=== PATIENT | female | born 1930 | race Caucasian/White ===

== ENCOUNTER → 2017-07-03 | Outpatient (CLI) | payer OTHER, MEDICARE ==
[~2017-07-03] MED LIST: CALCIUM 500 +1 EACH PO; CALTRATE 6001 TABLE1 PO; CENTRUM SILVER1 EAC3; CENTRUM SILVER1 EAC3 PO; EYE DROPS BOTH EYES; FEOSOL44 MG/ML PO; FERROUS SULFAT325 MG PO; FISH OIL 1,0001 EACH PO; FISH OIL 1,2001 EAC4 PO; HYDROCHLOROTH12.5 M3; HYDROCHLOROTH12.5 M3 PO; LO-DOSE ASPIRIN81 M1; LOW DOSE ASPIRI81 M2 PO; MICROZIDE PO; MIRALAX17 GM PO; PROTONIX40 MG PO; SIMVASTATIN10 MG; SIMVASTATIN10 MG PO; SYSTANE 0.300 DROP/1 BOTH EYES; Zocor PO
== END | disposition home or self-care (01) ==
LOC: NUC 07:18
DX: R07.9 Chest pain, unspecified (principal)
CPT/HCPCS: 78452; 93017; A9500; J2785